=== PATIENT | female | born 1985 | race Two or more races ===

== ENCOUNTER 2023-12-01 23:27 | Inpatient (IN) | payer MEDICAID, OTHER ==
[~2023-12-01] VITALS: Ht 172.7 cm; Wt 88.6 kg
[2023-12-02 00:07] LABS: Basophils # (auto) 0.1 10 ^3/uL (0-0.2); Basophils % (auto) 1.4 % (0.0-2.0); Eosinophils # (auto) 0 10 ^3/uL (0-0.8); Hematocrit 40.3 % (36.0-46.0); Hemoglobin 12.6 g/dL (12.2-16.2); Lymphocytes # (auto) 1.1 10 ^3/uL (0.4-5.4); Lymphocytes % (auto) 16.5 % (10.0-50.0); Mean Corpuscular Hemoglobin 28.5 pg (28.0-32.0); Mean Corpuscular Hgb Conc. 31.3 g/dL (32.0-36.0); Monocytes # (auto) 0.3 10 ^3/uL (0-1.3); Monocytes % (auto) 4.1 % (0.0-12.0); Neutrophils # (auto) 5.2 10 ^3/uL (1.6-8.6); Nucleated Red Blood Cells % 0.1 %; Red Blood Cells 4.42 10^6/uL (4.0-5.20); Red Cell Distribution Width 18.2 % (11.8-14.3); White Blood Cell 6.7 10^3/uL (4.4-10.8)
[2023-12-02 00:21] LABS: Alanine Aminotransferase 31 U/L (7-40); Albumin 3.9 g/dL (3.2-4.8); Alkaline Phosphatase 178 U/L (46-116); Anion Gap 11 (5-15); Aspartate Aminotransferase 65 U/L (13-40); BUN/Creatinine Ratio 14.3 (10.0-20.0); Bilirubin, Total 0.3 mg/dL (0.2-1.0); Blood Urea Nitrogen 8 mg/dL (9-23); Calcium 7.8 mg/dL (8.7-10.4); Carbon Dioxide 24 mmol/L (20-30); Chloride 107 mmol/L (98-107); Glucose 93 mg/dL (74-106); Potassium 3.9 mmol/L (3.5-5.1); Sodium 142 mmol/L (136-145); Total Protein 7.3 g/dL (5.7-8.2)
[2023-12-02 00:22] LABS: Acetaminophen < 2.0 UG/ML (10.0-20.0)
[2023-12-02 00:27] LABS: Salicylate < 3.0 mg/dL (2.8-20.0)
[2023-12-02] MEDS: METOCLOPRAMIDE HCL 5MG/ml INJ 2ml VIAL IV ONE (00:30)
[2023-12-02] MEDS: SODIUM CHLORIDE 0.9% 1,000 ML IV ONE ×2 (01:38→02:25)
[2023-12-02] MEDS: ONDANSETRON HCL 4 MG/2 ML VIAL IV ONE ×2 (01:42→08:04)
[2023-12-02 02:29] VITALS: PULSE 99; RESP 20; O2SAT 97
[2023-12-02 03:04] LABS: Urine Bacteria FEW /hpf (None Seen); Urine Blood 1+ /uL (Negative); Urine Clarity HAZY (Clear); Urine Color Yellow (Yellow); Urine Hyaline Cast FEW /lpf (0 - 2); Urine Mucus FEW (None Seen); Urine Protein, UAD TRACE (Negative); Urine Specific Gravity 1.014 (1.001-1.035); Urine Urobilinogen Normal (Negative); Urine WBC 3 /hpf (0 - 5); Urine pH 6.5 (5.0-8.0)
[2023-12-02 03:05] LABS: Amphetamine Screen, Urine Neg (NEGATIVE); Barbiturate Scree,Urine Neg (NEGATIVE); Benzodiazephine Screen, Urine Neg (NEGATIVE); Cocaine Screen, Urine Neg (NEGATIVE)
[2023-12-02 03:06] LABS: Cannabinoid Screen, Urine Neg (NEGATIVE); Opiate Scree,Urine Neg (NEGATIVE); Phencyclidine Screen, Urine Neg (NEGATIVE)
[2023-12-02] MEDS: ONDANSETRON ODT 4 MG TAB PO ONE (06:29)
[2023-12-02] MEDS: ACETAMINOPHEN 325 MG TAB PO ONE (06:30)
[2023-12-02 07:55] VITALS: PULSE 126; RESP 24; O2SAT 96
[2023-12-02] MEDS: LORazepam 2MG/ML-1ML VIAL IV ONE (08:04)
[2023-12-02] MEDS ORDERED: NITROGLYCERIN 0.4 MG SL TAB SL PRN (10:30)
[2023-12-02] MEDS ORDERED: MORPHINE SULFATE INJ 2 MG/ml SYRG IV PRN (10:30)
[2023-12-02] MEDS: SODIUM CHLORIDE 0.9% 1,000 ML IV SCH (13:08)
[2023-12-02] MEDS: LORazepam 2MG/ML-1ML VIAL IV PRN (13:08)
[2023-12-02] MEDS: ONDANSETRON HCL 4 MG/2 ML VIAL IV PRN (13:44)
[2023-12-02] MEDS: diphenhdrAMINE HCL 50 MG/1 ML VL IV ONE (14:03)
[2023-12-02] MEDS: ACETAMINOPHEN 325 MG TAB PO PRN (16:42)
[2023-12-02] MEDS: FOLIC ACID 1 MG, MAGNESIUM SULF SDV 50% 8 MEQ, MULTIPLE VITAMIN 10 ML, THIAMINE INJ 100... INJ SCH (17:35)
[2023-12-02 19:25] VITALS: PULSE 93; RESP 19; O2SAT 99
[2023-12-03] VITALS (9 sets, daily range): BP systolic 105–137; BP diastolic 77–93; PULSE 65–91; RESP 16–21; TEMP 98.1–98.8; O2SAT 95–98
[2023-12-03] MEDS ORDERED: HYDR-4902 PO (04:08)
[2023-12-03] MEDS ORDERED: LORA-655 PO (04:09)
[2023-12-03 07:06] LABS: Basophils # (auto) 0.1 10 ^3/uL (0-0.2); Eosinophils # (auto) 0 10 ^3/uL (0-0.8); Eosinophils % (auto) 0.5 % (0.0-7.0); Hematocrit 35.6 % (36.0-46.0); Hemoglobin 11.2 g/dL (12.2-16.2); Lymphocytes # (auto) 1.3 10 ^3/uL (0.4-5.4); Lymphocytes % (auto) 21.4 % (10.0-50.0); Mean Corpuscular Hemoglobin 29.1 pg (28.0-32.0); Mean Corpuscular Hgb Conc. 31.5 g/dL (32.0-36.0); Mean Corpuscular Volume 92.3 fL (80.0-100.0); Monocytes # (auto) 0.6 10 ^3/uL (0-1.3); Monocytes % (auto) 9.1 % (0.0-12.0); Neutrophils # (auto) 4.3 10 ^3/uL (1.6-8.6); Nucleated Red Blood Cells % 0.2 %; Red Blood Cells 3.85 10^6/uL (4.0-5.20); Red Cell Distribution Width 18.1 % (11.8-14.3); White Blood Cell 6.3 10^3/uL (4.4-10.8)
[2023-12-03 07:25] LABS: Alanine Aminotransferase 19 U/L (7-40); Albumin 3.4 g/dL (3.2-4.8); Alkaline Phosphatase 137 U/L (46-116); Anion Gap 5 (5-15); Aspartate Aminotransferase 30 U/L (13-40); BUN/Creatinine Ratio 10.7 (10.0-20.0); Bilirubin, Total 0.8 mg/dL (0.2-1.0); Blood Urea Nitrogen 6 mg/dL (9-23); Calcium 7.3 mg/dL (8.5-10.1); Carbon Dioxide 26 mmol/L (20-30); Chloride 109 mmol/L (98-107); Glucose 79 mg/dL (74-106); Potassium 3.6 mmol/L (3.5-5.1); Sodium 140 mmol/L (136-145)
[2023-12-03] MEDS: ENOXAPARIN SOD 40 MG/0.4 ML SYRINGE SC SCH (10:22)
[2023-12-03] MEDS: GABAPENTIN 300 MG CAP PO ONE (15:25)
[2023-12-03] MEDS: GABAPENTIN 300 MG CAP PO SCH (21:51)
[2023-12-04] MEDS: chlordiazePOXIDE HCL 5 MG CAP PO PRN (00:07)
[2023-12-04 06:29] LABS: Basophils # (auto) 0.1 10 ^3/uL (0-0.2); Basophils % (auto) 1.1 % (0.0-2.0); Eosinophils # (auto) 0.1 10 ^3/uL (0-0.8); Eosinophils % (auto) 0.9 % (0.0-7.0); Hematocrit 31.4 % (36.0-46.0); Hemoglobin 10.1 g/dL (12.2-16.2); Lymphocytes # (auto) 1.2 10 ^3/uL (0.4-5.4); Lymphocytes % (auto) 18.7 % (10.0-50.0); Mean Corpuscular Hemoglobin 29.7 pg (28.0-32.0); Mean Corpuscular Hgb Conc. 32.2 g/dL (32.0-36.0); Mean Corpuscular Volume 92.1 fL (80.0-100.0); Monocytes # (auto) 0.6 10 ^3/uL (0-1.3); Monocytes % (auto) 8.6 % (0.0-12.0); Neutrophils # (auto) 4.6 10 ^3/uL (1.6-8.6); Neutrophils % (auto) 70.7 % (37.0-80.0); Red Blood Cells 3.41 10^6/uL (4.0-5.20); Red Cell Distribution Width 17.7 % (11.8-14.3); White Blood Cell 6.4 10^3/uL (4.4-10.8)
[2023-12-04 06:35] LABS: Calcium 7.2 mg/dL (8.7-10.4); Chloride 111 mmol/L (98-107); Potassium 3.4 mmol/L (3.5-5.1); Sodium 142 mmol/L (136-145)
[2023-12-04 06:36] LABS: Anion Gap 6 (5-15); Carbon Dioxide 25 mmol/L (20-30)
[2023-12-04 06:41] LABS: Glucose 86 mg/dL (74-106)
[2023-12-04 06:44] LABS: BUN/Creatinine Ratio 9.8 (10.0-20.0); Blood Urea Nitrogen < 5 mg/dL (9-23)
[2023-12-04 07:45] VITALS: PULSE 94
[2023-12-04 09:00] VITALS: BP 130/83; PULSE 74; RESP 22; TEMP 98.3; O2SAT 100
[2023-12-04] MEDS: POTASSIUM EFFERVESENT TAB 25 MEQ PO ONE (11:42)
[2023-12-04 13:00] VITALS: BP 141/86; PULSE 76; RESP 18; TEMP 97.9; O2SAT 98
[2023-12-04 17:00] VITALS: BP 136/93; PULSE 78; RESP 18; TEMP 98.2; O2SAT 98
[2023-12-04 20:00] VITALS: PULSE 95
[2023-12-05] VITALS (7 sets, daily range): BP systolic 111–126; BP diastolic 77–85; PULSE 66–114; RESP 17–20; TEMP 97.7–98.6; O2SAT 96–98
[2023-12-05 07:14] LABS: Calcium 7.9 mg/dL (8.5-10.1); Chloride 110 mmol/L (98-107); Potassium 3.8 mmol/L (3.5-5.1); Sodium 141 mmol/L (136-145)
[2023-12-05 07:15] LABS: Anion Gap 5 (5-15); Carbon Dioxide 26 mmol/L (20-30)
[2023-12-05 07:20] LABS: Basophils # (auto) 0.1 10 ^3/uL (0-0.2); Eosinophils # (auto) 0.1 10 ^3/uL (0-0.8); Eosinophils % (auto) 1.1 % (0.0-7.0); Glucose 87 mg/dL (74-106); Hematocrit 31.8 % (36.0-46.0); Lymphocytes # (auto) 1.5 10 ^3/uL (0.4-5.4); Lymphocytes % (auto) 22.5 % (10.0-50.0); Mean Corpuscular Hemoglobin 29.1 pg (28.0-32.0); Mean Corpuscular Hgb Conc. 31.6 g/dL (32.0-36.0); Mean Corpuscular Volume 92.2 fL (80.0-100.0); Monocytes # (auto) 0.7 10 ^3/uL (0-1.3); Monocytes % (auto) 10.2 % (0.0-12.0); Neutrophils # (auto) 4.4 10 ^3/uL (1.6-8.6); Neutrophils % (auto) 65.2 % (37.0-80.0); Nucleated Red Blood Cells % 0.1 %; Red Blood Cells 3.45 10^6/uL (4.0-5.20); Red Cell Distribution Width 18.3 % (11.8-14.3); White Blood Cell 6.8 10^3/uL (4.4-10.8)
[2023-12-05 07:21] LABS: BUN/Creatinine Ratio 10.4 (10.0-20.0); Blood Urea Nitrogen < 5 mg/dL (9-23)
[2023-12-05] MEDS: QUEtiapine FUMARATE 25 MG TAB PO SCH (10:06)
[2023-12-06 05:00] VITALS: BP 111/79; PULSE 100; RESP 20; TEMP 97.9; O2SAT 98
[2023-12-06 08:15] VITALS: PULSE 65
[2023-12-06 09:00] VITALS: BP 112/76; PULSE 70; RESP 18; TEMP 98; O2SAT 97
[2023-12-06 09:22] VITALS: BP 112/76; PULSE 70; RESP 18; O2SAT 97
[2023-12-06] MEDS: LORazepam 0.5 MG TAB PO ONE (09:51)
== END 2023-12-06 10:55 | DRG 817 ==
LOC: EDBD 23:27 → ER 23:27 → TELE 12-02 10:30 → TELE-EAST 12-02 23:08
PROVIDERS: ADMIT Internal Medicine; ATTEND Internal Medicine
DX: T51.92XA Toxic effect of unspecified alcohol, intentional self-harm, initial encounter (principal); F10.139 Alcohol abuse with withdrawal, unspecified; R44.1 Visual hallucinations; F17.210 Nicotine dependence, cigarettes, uncomplicated; F32.A Depression, unspecified; T14.91XA Suicide attempt, initial encounter; F41.9 Anxiety disorder, unspecified; Y90.8 Blood alcohol level of 240 mg/100 ml or more; F14.10 Cocaine abuse, uncomplicated; Z63.4 Disappearance and death of family member; Z91.51 Personal history of suicidal behavior; Z91.52 Personal history of nonsuicidal self-harm; Z71.51 Drug abuse counseling and surveillance of drug abuser
CPT/HCPCS: 36415; 80048; 80053; 80307; 80320; 80329; 81001; 83735; 84702; 85025; 93005; 96361; 96374; 96375; 96376; G0378; J2405; Q0162

== ENCOUNTER 2024-01-11 23:28 | Inpatient (IN) | payer MEDICAID ==
[~2024-01-11] VITALS: Ht 172.7 cm; Wt 87.3 kg
[~2024-01-11 23:28] MED LIST: HYDR-4902 PO; LORA-655 PO
[2024-01-11] MEDS: ROCURONIUM 10MG/ML 10ML VIAL IV ONE ×2 (23:38→23:46)
[2024-01-11] MEDS: ETOMIDATE (2MG/ML) 20ML VIAL IV ONE ×2 (23:38→23:46)
[2024-01-11 23:50] VITALS: BP 131/97; PULSE 112; RESP 17; O2SAT 95
[2024-01-11 23:59] LABS: Urine Bacteria MOD /hpf (None Seen); Urine Blood Negative /uL (Negative); Urine Clarity HAZY (Clear); Urine Color Yellow (Yellow); Urine Mucus FEW (None Seen); Urine Protein, UAD Negative (Negative); Urine Specific Gravity 1.009 (1.001-1.035); Urine Urobilinogen Normal (Negative); Urine WBC 46 /hpf (0 - 5)
[2024-01-12] VITALS (8 sets, daily range): BP systolic 101–136; BP diastolic 40–97; PULSE 74–104; RESP 16–26; TEMP 98–98.3; O2SAT 94–98
[2024-01-12 00:09] LABS: Amphetamine Screen, Urine Neg (NEGATIVE); Barbiturate Scree,Urine Neg (NEGATIVE); Benzodiazephine Screen, Urine Neg (NEGATIVE); Cocaine Screen, Urine Neg (NEGATIVE); Opiate Scree,Urine Neg (NEGATIVE)
[2024-01-12 00:10] LABS: Cannabinoid Screen, Urine Pos (NEGATIVE); Phencyclidine Screen, Urine Neg (NEGATIVE)
[2024-01-12 00:19] LABS: Basophils # (auto) 0 10 ^3/uL (0-0.2); Basophils % (auto) 0.5 % (0.0-2.0); Eosinophils # (auto) 0 10 ^3/uL (0-0.8); Eosinophils % (auto) 0.9 % (0.0-7.0); Hematocrit 38.6 % (36.0-46.0); Hemoglobin 12.2 g/dL (12.2-16.2); Lymphocytes # (auto) 2.2 10 ^3/uL (0.4-5.4); Lymphocytes % (auto) 41.7 % (10.0-50.0); Mean Corpuscular Hemoglobin 28.4 pg (28.0-32.0); Mean Corpuscular Hgb Conc. 31.5 g/dL (32.0-36.0); Mean Corpuscular Volume 90.5 fL (80.0-100.0); Monocytes # (auto) 0.5 10 ^3/uL (0-1.3); Monocytes % (auto) 8.6 % (0.0-12.0); Neutrophils # (auto) 2.6 10 ^3/uL (1.6-8.6); Neutrophils % (auto) 48.3 % (37.0-80.0); Nucleated Red Blood Cells % 0.1 %; Red Blood Cells 4.27 10^6/uL (4.0-5.20); Red Cell Distribution Width 19.9 % (11.8-14.3); White Blood Cell 5.4 10^3/uL (4.4-10.8)
[2024-01-12 00:27] LABS: Chloride 107 mmol/L (98-107); Potassium 3.2 mmol/L (3.5-5.1); Sodium 143 mmol/L (136-145)
[2024-01-12 00:28] LABS: Anion Gap 11 (5-15); Calcium 7.5 mg/dL (8.7-10.4); Carbon Dioxide 25 mmol/L (20-30)
[2024-01-12 00:33] LABS: BUN/Creatinine Ratio 14.5 (10.0-20.0); Blood Urea Nitrogen 8 mg/dL (9-23); Glucose 106 mg/dL (74-106)
[2024-01-12] MEDS: cefTRIAXone 1GM/50ML D5W 50 ML IV ONE (01:01)
[2024-01-12] MEDS: PROPOFOL 100 ML IV SCH (01:25)
[2024-01-12 02:08] LABS: Blood Alcohol 433.3 mg/dL (<10)
[2024-01-12 02:43] LABS: Base Excess -1.6 mmol/L (-2.0-2.0)
[2024-01-12] MEDS: CALCIUM GLUC 1,000mg/50ml-NS 50 ML IV ONE (03:36)
[2024-01-12] MEDS ORDERED: MORPHINE SULFATE INJ 2 MG/ml SYRG IV PRN (03:45)
[2024-01-12] MEDS ORDERED: NITROGLYCERIN 0.4 MG SL TAB SL PRN (03:45)
[2024-01-12 04:09] LABS: Basophils # (auto) 0.1 10 ^3/uL (0-0.2); Basophils % (auto) 1.1 % (0.0-2.0); Eosinophils # (auto) 0 10 ^3/uL (0-0.8); Eosinophils % (auto) 0.5 % (0.0-7.0); Hematocrit 38.9 % (36.0-46.0); Hemoglobin 12.2 g/dL (12.2-16.2); Lymphocytes % (auto) 20.4 % (10.0-50.0); Mean Corpuscular Hemoglobin 28.5 pg (28.0-32.0); Mean Corpuscular Hgb Conc. 31.4 g/dL (32.0-36.0); Mean Corpuscular Volume 90.5 fL (80.0-100.0); Monocytes # (auto) 0.3 10 ^3/uL (0-1.3); Monocytes % (auto) 5.9 % (0.0-12.0); Neutrophils # (auto) 3.6 10 ^3/uL (1.6-8.6); Neutrophils % (auto) 72.1 % (37.0-80.0); Nucleated Red Blood Cells % 0.1 %; Red Cell Distribution Width 19.5 % (11.8-14.3)
[2024-01-12 04:18] LABS: Alanine Aminotransferase 21 U/L (7-40); Albumin 3.3 g/dL (3.2-4.8); Alkaline Phosphatase 91 U/L (46-116); Anion Gap 14 (5-15); Aspartate Aminotransferase 73 U/L (13-40); BUN/Creatinine Ratio 14.8 (10.0-20.0); Blood Urea Nitrogen 8 mg/dL (9-23); Calcium 7.7 mg/dL (8.7-10.4); Carbon Dioxide 23 mmol/L (20-30); Chloride 107 mmol/L (98-107); Glucose 97 mg/dL (74-106); Potassium 3.1 mmol/L (3.5-5.1); Sodium 144 mmol/L (136-145)
[2024-01-12 04:19] LABS: Bilirubin, Total 0.3 mg/dL (0.2-1.0); Total Protein 6.2 g/dL (5.7-8.2)
[2024-01-12 05:00] LABS: Base Excess -6.9 mmol/L (-2.0-2.0)
[2024-01-12] MEDS: SODIUM CHLOR 0.9% PF (SALINE LOCK) 10ML VIAL/SYR IV SCH (05:21)
[2024-01-12] MEDS: MULTIPLE VITAMIN TAB PO SCH (10:48)
[2024-01-12] MEDS: THIAMINE 100mg/ml INJ (200mg/2ml VIAL) IV SCH (10:48)
[2024-01-12] MEDS: FOLIC ACID 1 MG in D5W 5% 50 ML INJ SCH (12:11)
[2024-01-12] MEDS: ONDANSETRON ODT 4 MG TAB PO PRN (13:33)
[2024-01-12] MEDS: HYDROcodone-ACET 5/325MG TAB PO PRN (13:37)
[2024-01-12] MEDS: LORazepam 2MG/ML-1ML VIAL IV PRN (18:47)
[2024-01-12] MEDS: ONDANSETRON HCL 4 MG/2 ML VIAL IV PRN (18:47)
[2024-01-12] MEDS: FOLIC ACID 1 MG, MAGNESIUM SULF SDV 50% 8 MEQ, MULTIPLE VITAMIN 10 ML, THIAMINE INJ 100... INJ SCH (20:02)
[2024-01-12] MEDS: traZODone HCL 50 MG TAB PO SCH (20:51)
[2024-01-12] MEDS: busPIRone HCL 10 MG TAB PO SCH (20:51)
[2024-01-13] VITALS (9 sets, daily range): BP systolic 95–130; BP diastolic 56–88; PULSE 61–89; RESP 18–22; TEMP 97.9–98.2; O2SAT 95–97
[2024-01-13] MEDS: cefTRIAXone 1GM/50ML D5W 50 ML IV SCH (02:25)
[2024-01-13] MEDS: POTASSIUM EFFERVESENT TAB 25 MEQ PO ONE (09:22)
[2024-01-13] MEDS: FLUoxetine HCL 20 MG CAP PO SCH (09:22)
[2024-01-14] VITALS (11 sets, daily range): BP systolic 92–118; BP diastolic 50–80; PULSE 61–91; RESP 16–22; TEMP 97.8–98.3; O2SAT 95–99
[2024-01-14 06:06] LABS: Basophils # (auto) 0.1 10 ^3/uL (0-0.2); Basophils % (auto) 1.1 % (0.0-2.0); Eosinophils # (auto) 0.1 10 ^3/uL (0-0.8); Eosinophils % (auto) 2.1 % (0.0-7.0); Hematocrit 32.8 % (36.0-46.0); Hemoglobin 10.3 g/dL (12.2-16.2); Lymphocytes # (auto) 1.6 10 ^3/uL (0.4-5.4); Lymphocytes % (auto) 35.4 % (10.0-50.0); Mean Corpuscular Hemoglobin 27.9 pg (28.0-32.0); Mean Corpuscular Hgb Conc. 31.3 g/dL (32.0-36.0); Mean Corpuscular Volume 89.2 fL (80.0-100.0); Monocytes # (auto) 0.5 10 ^3/uL (0-1.3); Monocytes % (auto) 10.1 % (0.0-12.0); Neutrophils # (auto) 2.4 10 ^3/uL (1.6-8.6); Neutrophils % (auto) 51.3 % (37.0-80.0); Nucleated Red Blood Cells % 0.2 %; Red Blood Cells 3.68 10^6/uL (4.0-5.20); Red Cell Distribution Width 19.1 % (11.8-14.3); White Blood Cell 4.6 10^3/uL (4.4-10.8)
[2024-01-14 06:18] LABS: Chloride 110 mmol/L (98-107); Potassium 4.3 mmol/L (3.5-5.1); Sodium 141 mmol/L (136-145)
[2024-01-14 06:19] LABS: Anion Gap 1 (5-15); Calcium 7.7 mg/dL (8.7-10.4); Carbon Dioxide 30 mmol/L (20-30)
[2024-01-14 06:24] LABS: BUN/Creatinine Ratio 19.2 (10.0-20.0); Blood Urea Nitrogen 10 mg/dL (9-23); Glucose 85 mg/dL (74-106)
[2024-01-14] MEDS ORDERED: DOCUSATE SOD 100 MG CAP PO PRN (17:00)
[2024-01-15] VITALS (7 sets, daily range): BP systolic 106–116; BP diastolic 67–80; PULSE 59–87; RESP 16–20; TEMP 97–98.6; O2SAT 92–98
[2024-01-15] MEDS: ACETAMINOPHEN 325 MG TAB PO PRN (01:42)
[2024-01-15 06:21] LABS: Chloride 107 mmol/L (98-107); Potassium 4.3 mmol/L (3.5-5.1); Sodium 140 mmol/L (136-145)
[2024-01-15 06:22] LABS: Anion Gap 4 (5-15); Carbon Dioxide 29 mmol/L (20-30)
[2024-01-15 06:23] LABS: Calcium 7.7 mg/dL (8.5-10.1)
[2024-01-15 06:26] LABS: Basophils # (auto) 0.1 10 ^3/uL (0-0.2); Eosinophils # (auto) 0.1 10 ^3/uL (0-0.8); Hemoglobin 10.5 g/dL (12.2-16.2); Lymphocytes # (auto) 1.1 10 ^3/uL (0.4-5.4); Monocytes # (auto) 0.4 10 ^3/uL (0-1.3); Red Cell Distribution Width 19.3 % (11.8-14.3); White Blood Cell 5.7 10^3/uL (4.4-10.8)
[2024-01-15 06:27] LABS: Basophils % (auto) 0.9 % (0.0-2.0); Blood Urea Nitrogen 9 mg/dL (9-23); Eosinophils % (auto) 1.4 % (0.0-7.0); Glucose 91 mg/dL (74-106); Lymphocytes % (auto) 19.6 % (10.0-50.0); Mean Corpuscular Hemoglobin 27.8 pg (28.0-32.0); Mean Corpuscular Hgb Conc. 30.9 g/dL (32.0-36.0); Monocytes % (auto) 7.6 % (0.0-12.0); Neutrophils % (auto) 70.5 % (37.0-80.0); Nucleated Red Blood Cells % 0.1 %; Red Blood Cells 3.78 10^6/uL (4.0-5.20)
[2024-01-15] MEDS: busPIRone HCL 10 MG TAB PO SCH (21:00)
[2024-01-16] VITALS (8 sets, daily range): BP systolic 94–116; BP diastolic 57–76; PULSE 51–78; RESP 14–18; TEMP 97.8–98.7; O2SAT 95–98
[2024-01-16 06:29] LABS: Basophils # (auto) 0.1 10 ^3/uL (0-0.2); Eosinophils # (auto) 0.1 10 ^3/uL (0-0.8); Eosinophils % (auto) 2.1 % (0.0-7.0); Hematocrit 31.9 % (36.0-46.0); Hemoglobin 10.1 g/dL (12.2-16.2); Lymphocytes # (auto) 1.6 10 ^3/uL (0.4-5.4); Lymphocytes % (auto) 26.2 % (10.0-50.0); Mean Corpuscular Hemoglobin 28.5 pg (28.0-32.0); Mean Corpuscular Hgb Conc. 31.5 g/dL (32.0-36.0); Mean Corpuscular Volume 90.6 fL (80.0-100.0); Monocytes # (auto) 0.4 10 ^3/uL (0-1.3); Monocytes % (auto) 7.2 % (0.0-12.0); Neutrophils # (auto) 3.9 10 ^3/uL (1.6-8.6); Neutrophils % (auto) 63.5 % (37.0-80.0); Nucleated Red Blood Cells % 0.1 %; Red Blood Cells 3.53 10^6/uL (4.0-5.20); Red Cell Distribution Width 19.2 % (11.8-14.3); White Blood Cell 6.1 10^3/uL (4.4-10.8)
[2024-01-16 06:41] LABS: Chloride 109 mmol/L (98-107); Potassium 4.1 mmol/L (3.5-5.1); Sodium 140 mmol/L (136-145)
[2024-01-16 06:42] LABS: Anion Gap 4 (5-15); Calcium 7.6 mg/dL (8.5-10.1); Carbon Dioxide 27 mmol/L (20-30)
[2024-01-16 06:47] LABS: BUN/Creatinine Ratio 13.2 (10.0-20.0); Blood Urea Nitrogen 7 mg/dL (9-23); Glucose 87 mg/dL (74-106)
[2024-01-17] VITALS (7 sets, daily range): BP systolic 95–126; BP diastolic 52–68; PULSE 50–70; RESP 15–20; TEMP 98–99.4; O2SAT 96–99
[2024-01-17 06:01] LABS: Basophils # (auto) 0.1 10 ^3/uL (0-0.2); Basophils % (auto) 0.8 % (0.0-2.0); Eosinophils # (auto) 0.1 10 ^3/uL (0-0.8); Eosinophils % (auto) 1.5 % (0.0-7.0); Hematocrit 34.2 % (36.0-46.0); Hemoglobin 10.8 g/dL (12.2-16.2); Lymphocytes # (auto) 1.4 10 ^3/uL (0.4-5.4); Mean Corpuscular Hemoglobin 28.4 pg (28.0-32.0); Mean Corpuscular Hgb Conc. 31.5 g/dL (32.0-36.0); Mean Corpuscular Volume 90.2 fL (80.0-100.0); Monocytes # (auto) 0.5 10 ^3/uL (0-1.3); Neutrophils # (auto) 5.5 10 ^3/uL (1.6-8.6); Neutrophils % (auto) 72.7 % (37.0-80.0); Red Cell Distribution Width 19.6 % (11.8-14.3); White Blood Cell 7.5 10^3/uL (4.4-10.8)
[2024-01-17 06:10] LABS: Anion Gap 4 (5-15); Carbon Dioxide 28 mmol/L (20-30); Chloride 108 mmol/L (98-107); Potassium 4.1 mmol/L (3.5-5.1); Sodium 140 mmol/L (136-145)
[2024-01-17 06:16] LABS: BUN/Creatinine Ratio 13.6 (10.0-20.0); Blood Urea Nitrogen 8 mg/dL (9-23); Glucose 96 mg/dL (74-106)
[2024-01-18 05:00] VITALS: BP 104/72; PULSE 60; RESP 20; TEMP 97.7; O2SAT 95
[2024-01-18 09:00] VITALS: BP 103/57; PULSE 56; RESP 20; TEMP 97.7; O2SAT 100
[2024-01-18 13:00] VITALS: BP 127/64; PULSE 64; RESP 20; TEMP 98.1; O2SAT 100
== END 2024-01-18 14:30 | disposition left against medical advice (07) | DRG 817 ==
LOC: EDSEX 23:28 → EDBD 23:28 → ER 23:28 → TELE 01-12 03:47 → TELE-WESTW 01-12 08:57 → WEST WING 01-17 13:52
PROVIDERS: ADMIT Internal Medicine Pulmonary Disease; ATTEND Internal Medicine Pulmonary Disease
PROC: 0BH17EZ Insertion of Endotracheal Airway into Trachea, Via Natural or Artificial Opening (ICD-10-PCS; principal; 2024-01-12)
PROC: 5A1935Z Respiratory Ventilation, Less than 24 Consecutive Hours (ICD-10-PCS; 2024-01-12)
PROC: 0BP1XDZ Removal of Intraluminal Device from Trachea, External Approach (ICD-10-PCS; 2024-01-12)
DX: T51.0X2A Toxic effect of ethanol, intentional self-harm, initial encounter (principal); J96.01 Acute respiratory failure with hypoxia; G92.8 Other toxic encephalopathy; R45.851 Suicidal ideations; F33.2 Major depressive disorder, recurrent severe without psychotic features; E87.8 Other disorders of electrolyte and fluid balance, not elsewhere classified; E87.6 Hypokalemia; F10.129 Alcohol abuse with intoxication, unspecified; N39.0 Urinary tract infection, site not specified; Y90.8 Blood alcohol level of 240 mg/100 ml or more; Z53.29 Procedure and treatment not carried out because of patient's decision for other reasons; R44.0 Auditory hallucinations; Z79.899 Other long term (current) drug therapy; Z83.3 Family history of diabetes mellitus; Z82.49 Family history of ischemic heart disease and other diseases of the circulatory system; Z80.7 Family history of other malignant neoplasms of lymphoid, hematopoietic and related tissues; Y92.89 Other specified places as the place of occurrence of the external cause
CPT/HCPCS: 31500; 36415; 36600; 71045; 80048; 80053; 80307; 80320; 80329; 81001; 82805; 84484; 84702; 85025; 87070; 87086; 87205; 93005; 96365; 99291; G0378; J2405; J2704; J7060; Q0162

== ENCOUNTER 2024-01-31 16:14 | Inpatient (IN) | payer MEDICAID ==
[~2024-01-31] VITALS: Ht 172.7 cm; Wt 85.4 kg
[2024-01-31 16:50] VITALS: PULSE 63; RESP 14; O2SAT 96
[2024-01-31] MEDS: SODIUM CHLORIDE 0.9% 1,000 ML IV ONE (18:57)
[2024-01-31 19:25] LABS: Basophils # (auto) 0 10 ^3/uL (0-0.2); Basophils % (auto) 0.8 % (0.0-2.0); Eosinophils # (auto) 0.1 10 ^3/uL (0-0.8); Eosinophils % (auto) 1.7 % (0.0-7.0); Hematocrit 38.4 % (36.0-46.0); Lymphocytes # (auto) 1.5 10 ^3/uL (0.4-5.4); Lymphocytes % (auto) 30.5 % (10.0-50.0); Mean Corpuscular Hemoglobin 27.7 pg (28.0-32.0); Mean Corpuscular Hgb Conc. 31.3 g/dL (32.0-36.0); Mean Corpuscular Volume 88.4 fL (80.0-100.0); Monocytes # (auto) 0.4 10 ^3/uL (0-1.3); Monocytes % (auto) 8.7 % (0.0-12.0); Neutrophils % (auto) 58.3 % (37.0-80.0); Nucleated Red Blood Cells % 0.2 %; Red Blood Cells 4.34 10^6/uL (4.0-5.20); Red Cell Distribution Width 19.9 % (11.8-14.3); White Blood Cell 5.1 10^3/uL (4.4-10.8)
[2024-01-31 19:30] VITALS: PULSE 89; RESP 18; O2SAT 96
[2024-01-31 19:34] LABS: Chloride 107 mmol/L (98-107); Potassium 3.6 mmol/L (3.5-5.1); Sodium 144 mmol/L (136-145)
[2024-01-31 19:35] LABS: Anion Gap 10 (5-15); Calcium 7.7 mg/dL (8.5-10.1); Carbon Dioxide 27 mmol/L (20-30)
[2024-01-31 19:40] LABS: BUN/Creatinine Ratio 13.6 (10.0-20.0); Blood Urea Nitrogen 8 mg/dL (9-23); Glucose 103 mg/dL (74-106)
[2024-01-31 19:41] LABS: Blood Alcohol 286.1 mg/dL (<10)
[2024-01-31] MEDS: LORazepam 2MG/ML-1ML VIAL IV ONE (21:14)
[2024-01-31 22:46] LABS: Amphetamine Screen, Urine Neg (NEGATIVE); Barbiturate Scree,Urine Neg (NEGATIVE); Benzodiazephine Screen, Urine Neg (NEGATIVE); Cocaine Screen, Urine Neg (NEGATIVE); Opiate Scree,Urine Neg (NEGATIVE)
[2024-01-31 22:47] LABS: Cannabinoid Screen, Urine Pos (NEGATIVE); Phencyclidine Screen, Urine Neg (NEGATIVE)
[2024-02-01] MEDS: ONDANSETRON HCL 4 MG/2 ML VIAL IV ONE ×2 (00:47→08:56)
[2024-02-01] MEDS: LORazepam 2MG/ML-1ML VIAL IV ONE ×3 (01:40→08:56)
[2024-02-01 07:30] VITALS: PULSE 74; RESP 16; O2SAT 99
[2024-02-01] MEDS: LORazepam 2MG/ML-1ML VIAL IV SCH (08:45)
[2024-02-01 08:57] LABS: Basophils # (auto) 0.1 10 ^3/uL (0-0.2); Basophils % (auto) 1.2 % (0.0-2.0); Eosinophils # (auto) 0.1 10 ^3/uL (0-0.8); Eosinophils % (auto) 1.4 % (0.0-7.0); Hematocrit 32.5 % (36.0-46.0); Hemoglobin 10.5 g/dL (12.2-16.2); Lymphocytes # (auto) 0.9 10 ^3/uL (0.4-5.4); Lymphocytes % (auto) 20.7 % (10.0-50.0); Mean Corpuscular Hemoglobin 28.2 pg (28.0-32.0); Mean Corpuscular Hgb Conc. 32.3 g/dL (32.0-36.0); Mean Corpuscular Volume 87.4 fL (80.0-100.0); Monocytes # (auto) 0.4 10 ^3/uL (0-1.3); Monocytes % (auto) 8.5 % (0.0-12.0); Neutrophils # (auto) 2.9 10 ^3/uL (1.6-8.6); Neutrophils % (auto) 68.2 % (37.0-80.0); Nucleated Red Blood Cells % 0.3 %; Red Blood Cells 3.72 10^6/uL (4.0-5.20); Red Cell Distribution Width 19.8 % (11.8-14.3); White Blood Cell 4.3 10^3/uL (4.4-10.8)
[2024-02-01] MEDS: SODIUM CHLORIDE 0.9% 1,000 ML IVB ONE (08:57)
[2024-02-01] MEDS: THIAMINE 100mg/ml INJ (200mg/2ml VIAL) IV ONE (08:59)
[2024-02-01 09:14] LABS: Alanine Aminotransferase 36 U/L (7-40); Albumin 3.3 g/dL (3.2-4.8); Alkaline Phosphatase 129 U/L (46-116); Anion Gap 8 (5-15); Aspartate Aminotransferase 60 U/L (13-40); BUN/Creatinine Ratio 18.9 (10.0-20.0); Blood Urea Nitrogen 10 mg/dL (9-23); Calcium 7.4 mg/dL (8.5-10.1); Carbon Dioxide 27 mmol/L (20-30); Chloride 103 mmol/L (98-107); Glucose 91 mg/dL (74-106); Potassium 3.6 mmol/L (3.5-5.1); Sodium 138 mmol/L (136-145)
[2024-02-01 09:15] LABS: Total Protein 5.6 g/dL (5.7-8.2)
[2024-02-01] MEDS ORDERED: DOCUSATE SOD 100 MG CAP PO PRN (09:30)
[2024-02-01 10:19] LABS: Magnesium 1.3 mg/dL (1.6-2.6)
[2024-02-01] MEDS: SODIUM CHLORIDE 0.9% 1,000 ML IV SCH (11:34)
[2024-02-01] MEDS: chlordiazePOXIDE HCL 25 MG CAP PO SCH (11:34)
[2024-02-01] MEDS: FOLIC ACID 1 MG, MAGNESIUM SULF SDV 50% 8 MEQ, MULTIPLE VITAMIN 10 ML, THIAMINE INJ 100... INJ SCH (19:20)
[2024-02-01 20:00] VITALS: PULSE 80; RESP 18; O2SAT 99
[2024-02-01] MEDS: ONDANSETRON HCL 4 MG/2 ML VIAL IV PRN (21:36)
[2024-02-01] MEDS: MORPHINE SULFATE INJ 2 MG/ml SYRG IV PRN (21:37)
[2024-02-01 23:02] VITALS: BP 146/99; PULSE 75; RESP 18; O2SAT 97
[2024-02-02 00:23] VITALS: BP 146/99; PULSE 75; RESP 18; TEMP 98.6; O2SAT 97
[2024-02-02 05:00] VITALS: BP 146/99; PULSE 75; RESP 18; TEMP 98.8; O2SAT 97
[2024-02-02 05:45] LABS: Basophils # (auto) 0 10 ^3/uL (0-0.2); Basophils % (auto) 1.1 % (0.0-2.0); Eosinophils # (auto) 0.1 10 ^3/uL (0-0.8); Eosinophils % (auto) 3.3 % (0.0-7.0); Hematocrit 32.8 % (36.0-46.0); Hemoglobin 10.5 g/dL (12.2-16.2); Lymphocytes # (auto) 1.5 10 ^3/uL (0.4-5.4); Lymphocytes % (auto) 38.1 % (10.0-50.0); Mean Corpuscular Hemoglobin 28.2 pg (28.0-32.0); Mean Corpuscular Hgb Conc. 32.1 g/dL (32.0-36.0); Mean Corpuscular Volume 88.1 fL (80.0-100.0); Monocytes # (auto) 0.4 10 ^3/uL (0-1.3); Monocytes % (auto) 9.1 % (0.0-12.0); Neutrophils # (auto) 1.9 10 ^3/uL (1.6-8.6); Neutrophils % (auto) 48.4 % (37.0-80.0); Nucleated Red Blood Cells % 0.6 %; Red Blood Cells 3.72 10^6/uL (4.0-5.20); Red Cell Distribution Width 19.4 % (11.8-14.3); White Blood Cell 3.9 10^3/uL (4.4-10.8)
[2024-02-02 06:04] LABS: Alanine Aminotransferase 28 U/L (7-40); Albumin 3.2 g/dL (3.2-4.8); Alkaline Phosphatase 130 U/L (46-116); Anion Gap 7 (5-15); Aspartate Aminotransferase 37 U/L (13-40); Calcium 7.7 mg/dL (8.5-10.1); Carbon Dioxide 27 mmol/L (20-30); Chloride 106 mmol/L (98-107); Glucose 81 mg/dL (74-106); Potassium 3.3 mmol/L (3.5-5.1); Sodium 140 mmol/L (136-145)
[2024-02-02 06:05] LABS: Bilirubin, Total 0.9 mg/dL (0.2-1.0); Total Protein 5.5 g/dL (5.7-8.2)
[2024-02-02] MEDS: chlordiazePOXIDE HCL 25 MG CAP PO SCH (06:08)
[2024-02-02 06:09] LABS: BUN/Creatinine Ratio 10.4 (10.0-20.0); Blood Urea Nitrogen < 5 mg/dL (9-23)
[2024-02-02 09:07] VITALS: BP 135/82; PULSE 73; RESP 17; TEMP 98.5; O2SAT 98
[2024-02-02] MEDS ORDERED: chlordiazePOXIDE HCL 25 MG CAP PO SCH (10:00)
[2024-02-02] MEDS: POTASSIUM EFFERVESENT TAB 25 MEQ PO ONE (12:41)
[2024-02-02 13:00] VITALS: BP 118/54; PULSE 73; RESP 18; TEMP 98.5; O2SAT 98
[2024-02-02 17:10] VITALS: BP 120/85; PULSE 75; RESP 20; TEMP 98.7; O2SAT 99
[2024-02-02 22:00] VITALS: BP 134/93; PULSE 102; RESP 20; O2SAT 98
[2024-02-03 01:00] VITALS: BP 122/58; PULSE 74; RESP 20; TEMP 98.9; O2SAT 97
[2024-02-03 05:00] VITALS: BP 120/58; PULSE 59; PULSE 81; RESP 17; RESP 18; TEMP 97.7; TEMP 98.7; O2SAT 96; O2SAT 97
[2024-02-03 09:00] VITALS: BP 123/91; PULSE 64; RESP 21; TEMP 97.7; O2SAT 96
[2024-02-03] MEDS: LORazepam 2MG/ML-1ML VIAL IV PRN (09:47)
[2024-02-03 10:00] VITALS: BP 113/75; PULSE 87; RESP 21; TEMP 98.7; O2SAT 97
[2024-02-03] MEDS: chlordiazePOXIDE HCL 25 MG CAP PO SCH (10:18)
[2024-02-03] MEDS: levETIRAcetam 500 MG TAB PO ONE (11:15)
[2024-02-03] MEDS: levETIRAcetam 500 MG TAB ONE (11:22)
[2024-02-03 13:00] VITALS: BP 110/70; PULSE 74; RESP 20; TEMP 97.8; O2SAT 95
[2024-02-03 20:30] VITALS: RESP 17; O2SAT 96
[2024-02-03] MEDS: levETIRAcetam 500 MG TAB PO SCH (22:42)
[2024-02-04] VITALS (26 sets, daily range): BP systolic 94–182; BP diastolic 54–106; PULSE 46–91; RESP 13–25; TEMP 97.3–98.3; O2SAT 71–100
[2024-02-04] MEDS: MELATONIN 5 MG TAB PO ONE (01:56)
[2024-02-04] MEDS: levETIRAcetam 1000 mg/100ml 100 ML IV SCH (10:00)
[2024-02-04] MEDS: DEXTROSE (50%) 50ML SYRG IV ONE (18:30)
[2024-02-04] MEDS: DEXTROSE 50% SYRINGE 50 ML IV ONE (18:37)
[2024-02-04 18:42] LABS: Basophils # (auto) 0 10 ^3/uL (0-0.2); Basophils % (auto) 0.7 % (0.0-2.0); Eosinophils # (auto) 0.1 10 ^3/uL (0-0.8); Eosinophils % (auto) 2.4 % (0.0-7.0); Hematocrit 31.3 % (36.0-46.0); Hemoglobin 9.9 g/dL (12.2-16.2); Lymphocytes # (auto) 1.1 10 ^3/uL (0.4-5.4); Lymphocytes % (auto) 18.5 % (10.0-50.0); Mean Corpuscular Hemoglobin 28.4 pg (28.0-32.0); Mean Corpuscular Hgb Conc. 31.5 g/dL (32.0-36.0); Monocytes # (auto) 0.5 10 ^3/uL (0-1.3); Monocytes % (auto) 8.7 % (0.0-12.0); Neutrophils # (auto) 4.2 10 ^3/uL (1.6-8.6); Neutrophils % (auto) 69.7 % (37.0-80.0); Nucleated Red Blood Cells % 0.1 %; Red Blood Cells 3.48 10^6/uL (4.0-5.20); Red Cell Distribution Width 20.8 % (11.8-14.3)
[2024-02-04] MEDS: ETOMIDATE (2MG/ML) 20ML VIAL IV ONE ×2 (19:05→20:00)
[2024-02-04] MEDS: SUCCINYLCHOLINE CHLORIDE 20 MG/ML 10ML VIAL IV ONE ×2 (19:06→21:23)
[2024-02-04] MEDS: fentaNYL Drip 2500mCg/250mlNS 250 ML IV ONE (19:24)
[2024-02-04] MEDS: MIDAZOLAM DRIP 50 mg/50mL 100 ML IV ONE (19:27)
[2024-02-04] MEDS: PROPOFOL 100 ML IV ONE (19:30)
[2024-02-04 19:31] LABS: Alanine Aminotransferase 20 U/L (7-40); Albumin 3.1 g/dL (3.2-4.8); Alkaline Phosphatase 104 U/L (46-116); Anion Gap 9 (5-15); Aspartate Aminotransferase 26 U/L (13-40); BUN/Creatinine Ratio 18.5 (10.0-20.0); Bilirubin, Total 0.2 mg/dL (0.2-1.0); Blood Urea Nitrogen 10 mg/dL (9-23); Calcium 7.9 mg/dL (8.5-10.1); Carbon Dioxide 21 mmol/L (20-30); Chloride 112 mmol/L (98-107); Glucose 81 mg/dL (74-106); Potassium 3.6 mmol/L (3.5-5.1); Sodium 142 mmol/L (136-145); Total Protein 5.1 g/dL (5.7-8.2)
[2024-02-04] MEDS: NOREPINEPHRINE 8 MG/250ML KIT 250 ML IV ONE (20:01)
[2024-02-04 20:57] LABS: Urine Bacteria None Seen /hpf (None Seen)
[2024-02-04 21:05] LABS: Urine Blood Negative /uL (Negative); Urine Clarity Clear (Clear); Urine Color Yellow (Yellow); Urine Protein, UAD Negative (Negative); Urine Specific Gravity 1.018 (1.001-1.035); Urine Urobilinogen Normal (Negative); Urine WBC 1 /hpf (0 - 5)
[2024-02-04] MEDS: MIDAZOLAM DRIP 50 mg/50mL 50 ML IV SCH (21:24)
[2024-02-04] MEDS: PROPOFOL 100 ML IV SCH (21:25)
[2024-02-04] MEDS: fentaNYL Drip 2500mCg/250mlNS 250 ML IV SCH (21:25)
[2024-02-04] MEDS: NOREPINEPHRINE 8 MG/250ML KIT 250 ML IV SCH (21:26)
[2024-02-04] MEDS: chlordiazePOXIDE HCL 25 MG CAP PO SCH (21:29)
[2024-02-04] MEDS: levETIRAcetam 1000 mg/100ml 100 ML IV ONE (21:31)
[2024-02-05] VITALS (107 sets, daily range): BP systolic 85–123; BP diastolic 33–82; PULSE 46–72; RESP 12–22; TEMP 97.3–100.2; O2SAT 89–100
[2024-02-05 04:05] LABS: Basophils # (auto) 0.1 10 ^3/uL (0-0.2); Basophils % (auto) 0.9 % (0.0-2.0); Eosinophils # (auto) 0.2 10 ^3/uL (0-0.8); Eosinophils % (auto) 2.8 % (0.0-7.0); Hematocrit 29.4 % (36.0-46.0); Hemoglobin 9.3 g/dL (12.2-16.2); Lymphocytes # (auto) 1.8 10 ^3/uL (0.4-5.4); Lymphocytes % (auto) 28.1 % (10.0-50.0); Mean Corpuscular Hemoglobin 28.6 pg (28.0-32.0); Mean Corpuscular Hgb Conc. 31.5 g/dL (32.0-36.0); Mean Corpuscular Volume 90.9 fL (80.0-100.0); Monocytes # (auto) 0.5 10 ^3/uL (0-1.3); Neutrophils # (auto) 3.9 10 ^3/uL (1.6-8.6); Neutrophils % (auto) 60.2 % (37.0-80.0); Red Blood Cells 3.23 10^6/uL (4.0-5.20); White Blood Cell 6.4 10^3/uL (4.4-10.8)
[2024-02-05 04:07] LABS: Red Cell Distribution Width 21.6 % (11.8-14.3)
[2024-02-05 04:27] LABS: Alanine Aminotransferase 16 U/L (7-40); Albumin 2.8 g/dL (3.2-4.8); Alkaline Phosphatase 84 U/L (46-116); Anion Gap 6 (5-15); BUN/Creatinine Ratio 18.6 (10.0-20.0); Blood Urea Nitrogen 8 mg/dL (9-23); Calcium 7.6 mg/dL (8.7-10.4); Carbon Dioxide 24 mmol/L (20-30); Chloride 112 mmol/L (98-107); Glucose 87 mg/dL (74-106); Potassium 3.1 mmol/L (3.5-5.1); Sodium 142 mmol/L (136-145)
[2024-02-05 04:28] LABS: Aspartate Aminotransferase 22 U/L (13-40); Bilirubin, Total 0.3 mg/dL (0.2-1.0); Total Protein 5.1 g/dL (5.7-8.2)
[2024-02-05] MEDS: POTASSIUM CHL 20MEQ/100ML 100 ML IV ONE (05:22)
[2024-02-05] MEDS: chlordiazePOXIDE HCL 25 MG CAP PO SCH (08:10)
[2024-02-05 08:22] LABS: Base Excess -3.9 mmol/L (-2.0-2.0)
[2024-02-05] MEDS: POTASSIUM CHL 20MEQ/100ML 100 ML IV SCH (11:15)
[2024-02-05] MEDS: PANTOPRAZOLE 40 MG/10 ML VIAL INJ IV ONE (13:00)
[2024-02-05 13:32] LABS: INR 1.06 (0.9-1.15); Partial Thromboplastin Time 27.1 SEC (24.5-34.5); Prothrombin Time 11.1 sec (9.3-11.8)
[2024-02-06] VITALS (103 sets, daily range): BP systolic 91–118; BP diastolic 33–80; PULSE 60–92; RESP 12–25; TEMP 98.8–100; O2SAT 67–100
[2024-02-06 04:02] LABS: Basophils # (auto) 0.1 10 ^3/uL (0-0.2); Basophils % (auto) 0.7 % (0.0-2.0); Eosinophils # (auto) 0.1 10 ^3/uL (0-0.8); Eosinophils % (auto) 1.5 % (0.0-7.0); Hematocrit 30.5 % (36.0-46.0); Hemoglobin 9.6 g/dL (12.2-16.2); Lymphocytes # (auto) 1.5 10 ^3/uL (0.4-5.4); Lymphocytes % (auto) 19.9 % (10.0-50.0); Mean Corpuscular Hemoglobin 28.9 pg (28.0-32.0); Mean Corpuscular Hgb Conc. 31.4 g/dL (32.0-36.0); Monocytes # (auto) 0.9 10 ^3/uL (0-1.3); Monocytes % (auto) 11.7 % (0.0-12.0); Neutrophils # (auto) 5.1 10 ^3/uL (1.6-8.6); Neutrophils % (auto) 66.2 % (37.0-80.0); Red Blood Cells 3.31 10^6/uL (4.0-5.20); White Blood Cell 7.7 10^3/uL (4.4-10.8)
[2024-02-06 04:08] LABS: Red Cell Distribution Width 20.8 % (11.8-14.3)
[2024-02-06 04:17] LABS: % Iron Saturation 6.2 % (15-50)
[2024-02-06 04:18] LABS: Alanine Aminotransferase 17 U/L (7-40); Albumin 2.9 g/dL (3.2-4.8); Alkaline Phosphatase 86 U/L (46-116); Calcium 7.8 mg/dL (8.7-10.4); Carbon Dioxide 22 mmol/L (20-30); Chloride 111 mmol/L (98-107); Follicle Stimulating Hormone 3.83 IU/L (SEE BELOW); Glucose 90 mg/dL (74-106)
[2024-02-06 04:19] LABS: Anion Gap 5 (5-15); Aspartate Aminotransferase 27 U/L (13-40); Bilirubin, Total 0.5 mg/dL (0.2-1.0); Ferritin 41.1 ng/mL (10-291); Potassium 3.9 mmol/L (3.5-5.1); Sodium 138 mmol/L (136-145); Total Protein 5.3 g/dL (5.7-8.2)
[2024-02-06 04:30] LABS: BUN/Creatinine Ratio 11.1 (10.0-20.0); Blood Urea Nitrogen < 5 mg/dL (9-23)
[2024-02-06 05:53] LABS: Anisocytosis Slight; Platelet Estimate Adequate; Stomatocytes Many
[2024-02-06 08:45] LABS: Base Excess -6.5 mmol/L (-2.0-2.0)
[2024-02-06] MEDS: PANTOPRAZOLE 40 MG/10 ML VIAL INJ IV SCH (10:03)
[2024-02-06] MEDS: Jevity 1.2 Cal/Fiber 1 Liter GT SCH (10:29)
[2024-02-06] MEDS: SODIUM CHLORIDE 0.9% 1,000 ML IV SCH (13:15)
[2024-02-06] MEDS: DexmedeTOMIDine 200 MCG in D5W 5% 48 ML IV SCH (13:15)
[2024-02-06] MEDS: PIPERACILLIN-TAZOB 3.375GM 100 ML IV ONE (15:38)
[2024-02-06] MEDS: PIPERACILLIN-TAZOB 3.375GM 100 ML IV SCH (22:41)
[2024-02-07] VITALS (104 sets, daily range): BP systolic 77–132; BP diastolic 37–99; PULSE 64–101; RESP 7–30; TEMP 98.5–100.8; O2SAT 91–100
[2024-02-07 04:12] LABS: Basophils # (auto) 0 10 ^3/uL (0-0.2); Basophils % (auto) 0.6 % (0.0-2.0); Eosinophils # (auto) 0.1 10 ^3/uL (0-0.8); Hematocrit 27.8 % (36.0-46.0); Hemoglobin 8.8 g/dL (12.2-16.2); Lymphocytes # (auto) 0.8 10 ^3/uL (0.4-5.4); Lymphocytes % (auto) 14.2 % (10.0-50.0); Mean Corpuscular Hemoglobin 28.6 pg (28.0-32.0); Mean Corpuscular Hgb Conc. 31.7 g/dL (32.0-36.0); Mean Corpuscular Volume 90.3 fL (80.0-100.0); Monocytes # (auto) 0.8 10 ^3/uL (0-1.3); Monocytes % (auto) 13.9 % (0.0-12.0); Neutrophils # (auto) 4.1 10 ^3/uL (1.6-8.6); Neutrophils % (auto) 69.3 % (37.0-80.0); Red Blood Cells 3.07 10^6/uL (4.0-5.20); White Blood Cell 5.9 10^3/uL (4.4-10.8)
[2024-02-07 04:16] LABS: Chloride 108 mmol/L (98-107); Potassium 3.7 mmol/L (3.5-5.1); Sodium 136 mmol/L (136-145)
[2024-02-07 04:17] LABS: Anion Gap 4 (5-15); Carbon Dioxide 24 mmol/L (20-30)
[2024-02-07 04:18] LABS: Calcium 7.8 mg/dL (8.7-10.4)
[2024-02-07 04:23] LABS: Creatine Kinase IFCC 218 U/L (34-145); Glucose 100 mg/dL (74-106); Magnesium 1.9 mg/dL (1.6-2.6)
[2024-02-07 04:29] LABS: Red Cell Distribution Width 20.6 % (11.8-14.3)
[2024-02-07 04:48] LABS: BUN/Creatinine Ratio 11.9 (10.0-20.0); Blood Urea Nitrogen < 5 mg/dL (9-23)
[2024-02-07 05:08] LABS: CRP High Sensitivity 15.03 mg/dL (<1.0)
[2024-02-07 07:52] LABS: Base Excess -4.6 mmol/L (-2.0-2.0)
[2024-02-07 09:06] LABS: Testosterone <3 ng/dL (8-60)
[2024-02-07] MEDS: FLUCONAZOLE 200MG/100ML 100 ML IV ONE (13:32)
[2024-02-07 13:45] LABS: Base Excess -3.2 mmol/L (-2.0-2.0)
[2024-02-07] MEDS: NYSTATIN TOPICAL POWDER 15GM TOP ONE (18:54)
[2024-02-07] MEDS: NYSTATIN TOPICAL POWDER 15GM TOP SCH (21:31)
[2024-02-08] VITALS (86 sets, daily range): BP systolic 87–145; BP diastolic 47–89; PULSE 54–96; RESP 11–33; TEMP 98.4–100; O2SAT 86–100
[2024-02-08 03:54] LABS: Basophils # (auto) 0 10 ^3/uL (0-0.2); Basophils % (auto) 0.6 % (0.0-2.0); Eosinophils # (auto) 0.1 10 ^3/uL (0-0.8); Eosinophils % (auto) 2.1 % (0.0-7.0); Hematocrit 27.2 % (36.0-46.0); Hemoglobin 8.5 g/dL (12.2-16.2); Lymphocytes # (auto) 0.7 10 ^3/uL (0.4-5.4); Lymphocytes % (auto) 15.9 % (10.0-50.0); Mean Corpuscular Hgb Conc. 31.3 g/dL (32.0-36.0); Mean Corpuscular Volume 89.5 fL (80.0-100.0); Monocytes # (auto) 0.6 10 ^3/uL (0-1.3); Monocytes % (auto) 13.2 % (0.0-12.0); Neutrophils # (auto) 2.9 10 ^3/uL (1.6-8.6); Neutrophils % (auto) 68.2 % (37.0-80.0); Red Blood Cells 3.04 10^6/uL (4.0-5.20); White Blood Cell 4.2 10^3/uL (4.4-10.8)
[2024-02-08 04:11] LABS: Alanine Aminotransferase 18 U/L (7-40); Albumin 2.7 g/dL (3.2-4.8); Alkaline Phosphatase 82 U/L (46-116); Anion Gap 2 (5-15); Aspartate Aminotransferase 24 U/L (13-40); Bilirubin, Total 0.6 mg/dL (0.2-1.0); Carbon Dioxide 27 mmol/L (20-30); Chloride 109 mmol/L (98-107); Glucose 83 mg/dL (74-106); Magnesium 1.9 mg/dL (1.6-2.6); Potassium 3.7 mmol/L (3.5-5.1); Sodium 138 mmol/L (136-145)
[2024-02-08 04:24] LABS: BUN/Creatinine Ratio 12.8 (10.0-20.0); Blood Urea Nitrogen < 5 mg/dL (9-23)
[2024-02-08] MEDS ORDERED: ALBUTEROL SULF 2.5 MG/0.5ML(0.5%) NEB SOLN NEB PRN (09:15)
[2024-02-08] MEDS: FLUCONAZOLE 200MG/100ML 100 ML IV SCH (10:00)
[2024-02-08] MEDS ORDERED: IRON SUCROSE COMPLEX 100 ML IV SCH (12:00)
[2024-02-08] MEDS ORDERED: ACETYLCYSTEINE 10 %(100MG/ML) SOL 4ML NEB SCH (12:00)
[2024-02-08] MEDS: MORPHINE SULFATE INJ 2 MG/ml SYRG IV PRN (16:18)
[2024-02-08] MEDS: IPRATROPIUM BROM 0.5 MG/2.5ML INH SOL NEB SCH (18:05)
[2024-02-08] MEDS: LORazepam 2MG/ML-1ML VIAL IV PRN (21:11)
[2024-02-09] VITALS (38 sets, daily range): BP systolic 101–128; BP diastolic 57–89; PULSE 52–102; RESP 14–36; TEMP 98–99.6; O2SAT 90–100
[2024-02-09] MEDS ORDERED: HYDROcodone-ACET 5/325MG TAB PO PRN (01:00)
[2024-02-09 06:07] LABS: Basophils # (auto) 0 10 ^3/uL (0-0.2); Eosinophils # (auto) 0.1 10 ^3/uL (0-0.8); Hemoglobin 8.4 g/dL (12.2-16.2); Lymphocytes # (auto) 0.9 10 ^3/uL (0.4-5.4); Nucleated Red Blood Cells % 0.2 %
[2024-02-09 06:09] LABS: Basophils % (auto) 1.1 % (0.0-2.0); Eosinophils % (auto) 4.2 % (0.0-7.0); Hematocrit 26.3 % (36.0-46.0); Lymphocytes % (auto) 27.7 % (10.0-50.0); Mean Corpuscular Hemoglobin 28.3 pg (28.0-32.0); Mean Corpuscular Hgb Conc. 31.9 g/dL (32.0-36.0); Mean Corpuscular Volume 88.7 fL (80.0-100.0); Monocytes # (auto) 0.5 10 ^3/uL (0-1.3); Monocytes % (auto) 14.6 % (0.0-12.0); Neutrophils # (auto) 1.7 10 ^3/uL (1.6-8.6); Neutrophils % (auto) 52.4 % (37.0-80.0); Red Blood Cells 2.97 10^6/uL (4.0-5.20); Red Cell Distribution Width 19.8 % (11.8-14.3); White Blood Cell 3.3 10^3/uL (4.4-10.8)
[2024-02-09 06:24] LABS: Alanine Aminotransferase 12 U/L (7-40); Albumin 2.9 g/dL (3.2-4.8); Alkaline Phosphatase 75 U/L (46-116); Amylase 43 U/L (30-118); Anion Gap 7 (5-15); Aspartate Aminotransferase 22 U/L (13-40); BUN/Creatinine Ratio 12.8 (10.0-20.0); Blood Urea Nitrogen < 5 mg/dL (9-23); Calcium 8.1 mg/dL (8.5-10.1); Carbon Dioxide 27 mmol/L (20-30); Chloride 108 mmol/L (98-107); Glucose 81 mg/dL (74-106); Potassium 3.7 mmol/L (3.5-5.1); Sodium 142 mmol/L (136-145)
[2024-02-09 06:25] LABS: Bilirubin, Total 0.4 mg/dL (0.2-1.0)
[2024-02-09 07:15] LABS: Lipase 30 U/L (12-53)
[2024-02-09] MEDS: LORazepam 0.5 MG TAB PO PRN (18:12)
[2024-02-09] MEDS: ALBUTEROL SULF 2.5 MG/0.5ML(0.5%) NEB SOLN NEB PRN (19:03)
[2024-02-10] VITALS (16 sets, daily range): BP systolic 114–127; BP diastolic 63–87; PULSE 61–114; RESP 16–21; TEMP 97.9–99; O2SAT 91–100
[2024-02-10 06:22] LABS: Basophils # (auto) 0.1 10 ^3/uL (0-0.2); Basophils % (auto) 1.4 % (0.0-2.0); Eosinophils # (auto) 0.1 10 ^3/uL (0-0.8); Hematocrit 29.1 % (36.0-46.0); Hemoglobin 9.3 g/dL (12.2-16.2); Lymphocytes # (auto) 1.2 10 ^3/uL (0.4-5.4); Mean Corpuscular Hemoglobin 27.9 pg (28.0-32.0); Mean Corpuscular Volume 87.2 fL (80.0-100.0); Monocytes # (auto) 0.5 10 ^3/uL (0-1.3); Monocytes % (auto) 11.5 % (0.0-12.0); Neutrophils # (auto) 2.2 10 ^3/uL (1.6-8.6); Neutrophils % (auto) 55.1 % (37.0-80.0); Nucleated Red Blood Cells % 0.1 %; Red Blood Cells 3.34 10^6/uL (4.0-5.20); Red Cell Distribution Width 19.4 % (11.8-14.3)
[2024-02-10 06:47] LABS: Anion Gap 6 (5-15); Carbon Dioxide 27 mmol/L (20-30); Chloride 110 mmol/L (98-107); Potassium 3.2 mmol/L (3.5-5.1); Sodium 143 mmol/L (136-145)
[2024-02-10 06:49] LABS: Calcium 8.2 mg/dL (8.7-10.4)
[2024-02-10 06:53] LABS: Glucose 91 mg/dL (74-106)
[2024-02-10 06:54] LABS: Magnesium 1.9 mg/dL (1.6-2.6)
[2024-02-10 06:56] LABS: BUN/Creatinine Ratio 10.4 (10.0-20.0); Blood Urea Nitrogen < 5 mg/dL (9-23)
[2024-02-10 08:13] LABS: COVID19 ANTIGEN SOFIA FIA NEGATIVE (NEGATIVE)
[2024-02-10 08:14] LABS: Rapid Influenza A Negative (Negative); Rapid Influenza B Negative (Negative)
[2024-02-10] MEDS: POTASSIUM EFFERVESENT TAB 25 MEQ GT ONE (11:55)
[2024-02-11] VITALS (16 sets, daily range): BP systolic 110–140; BP diastolic 69–95; PULSE 51–97; RESP 16–20; TEMP 85–98.6; O2SAT 91–100
[2024-02-11 06:22] LABS: Basophils # (auto) 0.1 10 ^3/uL (0-0.2); Basophils % (auto) 1.4 % (0.0-2.0); Eosinophils # (auto) 0.1 10 ^3/uL (0-0.8); Eosinophils % (auto) 2.1 % (0.0-7.0); Hematocrit 28.6 % (36.0-46.0); Hemoglobin 9.4 g/dL (12.2-16.2); Lymphocytes # (auto) 1.6 10 ^3/uL (0.4-5.4); Lymphocytes % (auto) 33.7 % (10.0-50.0); Mean Corpuscular Hemoglobin 28.8 pg (28.0-32.0); Mean Corpuscular Hgb Conc. 32.8 g/dL (32.0-36.0); Mean Corpuscular Volume 87.8 fL (80.0-100.0); Monocytes # (auto) 0.4 10 ^3/uL (0-1.3); Monocytes % (auto) 9.3 % (0.0-12.0); Neutrophils # (auto) 2.6 10 ^3/uL (1.6-8.6); Neutrophils % (auto) 53.5 % (37.0-80.0); Nucleated Red Blood Cells % 0.1 %; Red Blood Cells 3.26 10^6/uL (4.0-5.20); White Blood Cell 4.8 10^3/uL (4.4-10.8)
[2024-02-11 06:25] LABS: Anion Gap 8 (5-15); Carbon Dioxide 25 mmol/L (20-30); Chloride 109 mmol/L (98-107); Potassium 3.4 mmol/L (3.5-5.1); Sodium 142 mmol/L (136-145)
[2024-02-11 06:26] LABS: Calcium 8.1 mg/dL (8.5-10.1)
[2024-02-11 06:29] LABS: Red Cell Distribution Width 20.4 % (11.8-14.3)
[2024-02-11 06:31] LABS: Glucose 90 mg/dL (74-106)
[2024-02-11 06:35] LABS: BUN/Creatinine Ratio 9.8 (10.0-20.0); Blood Urea Nitrogen < 5 mg/dL (9-23)
[2024-02-11] MEDS: POTASSIUM CHL 20 Meq TABLET PO ONE (18:32)
[2024-02-11] MEDS: MELATONIN 5 MG TAB PO ONE (22:40)
[2024-02-12] VITALS (14 sets, daily range): BP systolic 115–150; BP diastolic 67–92; PULSE 52–101; RESP 16–20; TEMP 98.1–98.6; O2SAT 92–100
[2024-02-12] MEDS: LORazepam 2MG/ML-1ML VIAL IV PRN (05:20)
[2024-02-12] MEDS: ALBUTEROL SULF 2.5 MG/0.5ML(0.5%) NEB SOLN ONE (05:42)
[2024-02-12] MEDS: IPRATROPIUM BROM 0.5 MG/2.5ML INH SOL ONE (05:42)
[2024-02-12 07:16] LABS: Anion Gap 9 (5-15); Calcium 8.1 mg/dL (8.5-10.1); Carbon Dioxide 24 mmol/L (20-30); Chloride 108 mmol/L (98-107); Potassium 3.7 mmol/L (3.5-5.1); Sodium 141 mmol/L (136-145)
[2024-02-12 07:22] LABS: Glucose 83 mg/dL (74-106)
[2024-02-12 07:30] LABS: Basophils # (auto) 0.1 10 ^3/uL (0-0.2); Basophils % (auto) 2.1 % (0.0-2.0); Eosinophils # (auto) 0.2 10 ^3/uL (0-0.8); Eosinophils % (auto) 2.7 % (0.0-7.0); Hemoglobin 8.8 g/dL (12.2-16.2); Lymphocytes # (auto) 1.9 10 ^3/uL (0.4-5.4); Lymphocytes % (auto) 31.2 % (10.0-50.0); Mean Corpuscular Hemoglobin 28.7 pg (28.0-32.0); Mean Corpuscular Hgb Conc. 32.8 g/dL (32.0-36.0); Mean Corpuscular Volume 87.7 fL (80.0-100.0); Monocytes # (auto) 0.5 10 ^3/uL (0-1.3); Monocytes % (auto) 7.5 % (0.0-12.0); Neutrophils # (auto) 3.4 10 ^3/uL (1.6-8.6); Neutrophils % (auto) 56.5 % (37.0-80.0); Nucleated Red Blood Cells % 0.1 %; Red Blood Cells 3.07 10^6/uL (4.0-5.20); Red Cell Distribution Width 20.5 % (11.8-14.3); White Blood Cell 6.1 10^3/uL (4.4-10.8)
[2024-02-12] MEDS ORDERED: LORazepam 2MG/ML-1ML VIAL IV PRN (10:00)
[2024-02-12 12:31] LABS: BUN/Creatinine Ratio 11.4 (10.0-20.0); Blood Urea Nitrogen 5 mg/dL (9-23)
[2024-02-12] MEDS: traZODone HCL 50 MG TAB PO SCH (21:29)
[2024-02-12] MEDS: levETIRAcetam 500 MG TAB PO SCH (21:30)
[2024-02-12] MEDS: AMOXICILLIN/CLAVUL 875 MG TAB PO SCH (23:22)
[2024-02-13] VITALS (10 sets, daily range): BP systolic 107–125; BP diastolic 61–80; PULSE 54–84; RESP 16–20; TEMP 98–98.7; O2SAT 90–100
[2024-02-13 07:27] LABS: Anion Gap 6 (5-15); Carbon Dioxide 27 mmol/L (20-30); Chloride 109 mmol/L (98-107); Potassium 3.6 mmol/L (3.5-5.1); Sodium 142 mmol/L (136-145)
[2024-02-13 07:28] LABS: Calcium 8.5 mg/dL (8.7-10.4)
[2024-02-13 07:33] LABS: Blood Urea Nitrogen 6 mg/dL (9-23); Glucose 75 mg/dL (74-106); Magnesium 2.1 mg/dL (1.6-2.6)
[2024-02-13 08:27] LABS: Hematocrit 29.3 % (36.0-46.0); Hemoglobin 9.2 g/dL (12.2-16.2); Mean Corpuscular Hemoglobin 28.4 pg (28.0-32.0); Mean Corpuscular Hgb Conc. 31.4 g/dL (32.0-36.0); Mean Corpuscular Volume 90.2 fL (80.0-100.0); Red Blood Cells 3.25 10^6/uL (4.0-5.20); White Blood Cell 6.5 10^3/uL (4.4-10.8)
[2024-02-13 08:32] LABS: Blast Cells 0; Metamyelocytes % 0; Myelocytes % 0; Promyelocytes % 0; Reactive Lymphocytes 0; Red Cell Distribution Width 20.4 % (11.8-14.3)
[2024-02-13 12:35] LABS: Anisocytosis Slight; Band Neutrophils % (manual) 3; Basophils % (manual) 1 (0.0-2.0); Eosinophils % (manual) 3 (0-7); Lymphocytes % (manual) 23 (10.0-50.0); Monocytes % (manual) 3 (0-12); Platelet Estimate Increased
[2024-02-13] MEDS ORDERED: NYS15PW TOP (13:12)
[2024-02-13] MEDS ORDERED: AUG875T PO (13:12)
[2024-02-13] MEDS ORDERED: KEP500T PO (13:12)
[2024-02-18 12:06] LABS: Free Testosterone(Direct) 0.3 pg/mL (0.0-4.2)
== END 2024-02-13 19:20 | disposition left against medical advice (07) | DRG 720 ==
LOC: EDBD 16:14 → ER 16:14 → OVERFLOW 02-01 09:31 → CENTRAL 02-01 22:58 → WEST WING 02-04 16:21 → ICU WEST 02-04 19:16 → DOU IN ICU 02-08 10:37 → TELE-E-ADS 02-09 10:21 → TELE-EAST 02-09 18:00 → EAST 02-12 14:53
PROVIDERS: ADMIT Internal Medicine; ATTEND Internal Medicine
PROC: 05HY33Z Insertion of Infusion Device into Upper Vein, Percutaneous Approach (ICD-10-PCS; 2024-02-01)
PROC: 5A1945Z Respiratory Ventilation, 24-96 Consecutive Hours (ICD-10-PCS; principal; 2024-02-04)
PROC: 0BH17EZ Insertion of Endotracheal Airway into Trachea, Via Natural or Artificial Opening (ICD-10-PCS; 2024-02-04)
PROC: 05HA33Z Insertion of Infusion Device into Left Brachial Vein, Percutaneous Approach (ICD-10-PCS; 2024-02-08)
PROC: B54NZZA Ultrasonography of Left Upper Extremity Veins, Guidance (ICD-10-PCS; 2024-02-08)
DX: A41.9 Sepsis, unspecified organism (principal); J96.01 Acute respiratory failure with hypoxia; J69.0 Pneumonitis due to inhalation of food and vomit; R65.21 Severe sepsis with septic shock; G92.8 Other toxic encephalopathy; E87.20 Acidosis, unspecified; J18.9 Pneumonia, unspecified organism; G40.409 Other generalized epilepsy and epileptic syndromes, not intractable, without status epilepticus; B37.2 Candidiasis of skin and nail; T51.91XA Toxic effect of unspecified alcohol, accidental (unintentional), initial encounter; R45.851 Suicidal ideations; Z20.822 Contact with and (suspected) exposure to COVID-19; F14.10 Cocaine abuse, uncomplicated; F10.239 Alcohol dependence with withdrawal, unspecified; D64.9 Anemia, unspecified; E87.6 Hypokalemia; F43.23 Adjustment disorder with mixed anxiety and depressed mood; F32.A Depression, unspecified; F32.9 Major depressive disorder, single episode, unspecified; L68.0 Hirsutism; F17.210 Nicotine dependence, cigarettes, uncomplicated; Z53.29 Procedure and treatment not carried out because of patient's decision for other reasons; Z83.3 Family history of diabetes mellitus; Z91.51 Personal history of suicidal behavior; Z91.199 Patient's noncompliance with other medical treatment and regimen due to unspecified reason; Z98.84 Bariatric surgery status; Z79.899 Other long term (current) drug therapy; Z80.7 Family history of other malignant neoplasms of lymphoid, hematopoietic and related tissues; Z82.49 Family history of ischemic heart disease and other diseases of the circulatory system; Z90.49 Acquired absence of other specified parts of digestive tract
CPT/HCPCS: 36415; 36600; 70450; 71045; 72125; 74177; 74181; 76856; 80048; 80053; 80061; 80307; 80320; 81001; 81025; 82150; 82533; 82542; 82550; 82607; 82728; 82746; 82805; 82962; 83001; 83540; 83550; 83605; 83690; 83735; 83880; 84146; 84402; 84403; 84443; 84702; 85007; 85025; 85027; 85610; 85730; 86141; 86301; 87040; 87070; 87081; 87086; 87205; 87426; 87804; 92610; 94002; 94003; 94640; 95819; 96361; 96374; 96375; 96376; 97110; 97116; 97163; 97530; C9113; G0378; J0330; J1450; J2250; J2405; J2543; J2704; J3480; J7060

== ENCOUNTER 2024-02-16 20:59 | Inpatient (IN) | payer MEDICAID ==
[~2024-02-16] VITALS: Ht 167.6 cm; Wt 80.0 kg
[~2024-02-16 20:59] MED LIST changes: +AUG875T PO; +KEP500T PO; +NYS15PW TOP
[2024-02-16 22:04] LABS: Basophils # (auto) 0.1 10 ^3/uL (0-0.2); Basophils % (auto) 0.9 % (0.0-2.0); Eosinophils # (auto) 0 10 ^3/uL (0-0.8); Eosinophils % (auto) 0.3 % (0.0-7.0); Hematocrit 35.7 % (36.0-46.0); Hemoglobin 11.1 g/dL (12.2-16.2); Lymphocytes # (auto) 1.7 10 ^3/uL (0.4-5.4); Mean Corpuscular Hemoglobin 27.3 pg (28.0-32.0); Mean Corpuscular Hgb Conc. 30.9 g/dL (32.0-36.0); Mean Corpuscular Volume 88.4 fL (80.0-100.0); Monocytes # (auto) 0.6 10 ^3/uL (0-1.3); Monocytes % (auto) 5.5 % (0.0-12.0); Neutrophils # (auto) 8.6 10 ^3/uL (1.6-8.6); Neutrophils % (auto) 78.3 % (37.0-80.0); Nucleated Red Blood Cells % 0.1 %; Red Blood Cells 4.04 10^6/uL (4.0-5.20)
[2024-02-16 22:06] LABS: Red Cell Distribution Width 20.4 % (11.8-14.3)
[2024-02-16 22:23] VITALS: PULSE 68; RESP 20; O2SAT 94
[2024-02-16 22:25] LABS: Alanine Aminotransferase 85 U/L (7-40); Albumin 3.9 g/dL (3.2-4.8); Alkaline Phosphatase 77 U/L (46-116); Anion Gap 12 (5-15); Aspartate Aminotransferase 89 U/L (13-40); BUN/Creatinine Ratio 8.8 (10.0-20.0); Bilirubin, Total 0.2 mg/dL (0.2-1.0); Blood Urea Nitrogen 6 mg/dL (9-23); Calcium 8.7 mg/dL (8.5-10.1); Carbon Dioxide 15 mmol/L (20-30); Chloride 109 mmol/L (98-107); Glucose 92 mg/dL (74-106); Potassium 3.4 mmol/L (3.5-5.1); Salicylate < 3.0 mg/dL (2.8-20.0); Total Protein 7.2 g/dL (5.7-8.2)
[2024-02-16 22:29] LABS: Anisocytosis Slight
[2024-02-16 22:30] LABS: Sodium 136 mmol/L (136-145)
[2024-02-16 22:31] LABS: Large Platelets FEW; Ovalocytes FEW; Platelet Estimate Marked
[2024-02-16 22:32] LABS: Giant Platelets Few
[2024-02-16 22:33] LABS: Blood Alcohol 291.2 mg/dL (<10)
[2024-02-16 22:42] LABS: Magnesium 2.2 mg/dL (1.6-2.6)
[2024-02-16 22:47] LABS: Urine Bacteria FEW /hpf (None Seen); Urine Blood Negative /uL (Negative); Urine Clarity Clear (Clear); Urine Color Colorless (Yellow); Urine Protein, UAD Negative (Negative); Urine Specific Gravity 1.009 (1.001-1.035); Urine Urobilinogen Normal (Negative); Urine WBC 1 /hpf (0 - 5); Urine pH 5.5 (5.0-9.0)
[2024-02-16] MEDS: SODIUM CHLORIDE 0.9% 1,000 ML IV ONE (23:02)
[2024-02-16 23:11] LABS: Amphetamine Screen, Urine Neg (NEGATIVE); Barbiturate Scree,Urine Neg (NEGATIVE); Benzodiazephine Screen, Urine Pos (NEGATIVE); Cannabinoid Screen, Urine Pos (NEGATIVE); Cocaine Screen, Urine Neg (NEGATIVE); Opiate Scree,Urine Pos (NEGATIVE); Phencyclidine Screen, Urine Neg (NEGATIVE)
[2024-02-17] MEDS: FOLIC ACID 1 MG, MAGNESIUM SULF SDV 50% 8 MEQ, MULTIPLE VITAMIN 10 ML, THIAMINE INJ 100... INJ SCH (01:06)
[2024-02-17] MEDS: MVI in SODIUM CHLORIDE 0.9% 1,010 ML ONE (01:11)
[2024-02-17] MEDS: SODIUM CHLORIDE 0.9% 1,000 ML IV ONE ×2 (02:30→04:36)
[2024-02-17] MEDS: NOREPINEPHRINE 8 MG/250ML KIT 250 ML IV SCH (05:59)
[2024-02-17] MEDS ORDERED: ONDANSETRON HCL 4 MG/2 ML VIAL IV PRN (06:45)
[2024-02-17] MEDS ORDERED: ACETAMINOPHEN 325 MG TAB PO PRN (06:45)
[2024-02-17] MEDS ORDERED: MORPHINE SULFATE INJ 2 MG/ml SYRG IV PRN (06:45)
[2024-02-17] MEDS ORDERED: DOCUSATE SOD 100 MG CAP PO PRN (06:45)
[2024-02-17] MEDS ORDERED: HYDROcodone-ACET 5/325MG TAB PO PRN (06:45)
[2024-02-17] MEDS ORDERED: NITROGLYCERIN 0.4 MG SL TAB SL PRN (06:45)
[2024-02-17 06:56] LABS: Basophils # (auto) 0.1 10 ^3/uL (0-0.2); Basophils % (auto) 1.5 % (0.0-2.0); Eosinophils # (auto) 0.1 10 ^3/uL (0-0.8); Eosinophils % (auto) 0.9 % (0.0-7.0); Hematocrit 29.2 % (36.0-46.0); Lymphocytes # (auto) 1.4 10 ^3/uL (0.4-5.4); Lymphocytes % (auto) 18.4 % (10.0-50.0); Mean Corpuscular Hgb Conc. 30.8 g/dL (32.0-36.0); Mean Corpuscular Volume 87.7 fL (80.0-100.0); Monocytes # (auto) 0.4 10 ^3/uL (0-1.3); Monocytes % (auto) 5.1 % (0.0-12.0); Neutrophils # (auto) 5.8 10 ^3/uL (1.6-8.6); Neutrophils % (auto) 74.1 % (37.0-80.0); Red Blood Cells 3.33 10^6/uL (4.0-5.20); Red Cell Distribution Width 20.2 % (11.8-14.3); White Blood Cell 7.8 10^3/uL (4.4-10.8)
[2024-02-17 07:01] LABS: Alanine Aminotransferase 55 U/L (7-40); Albumin 2.9 g/dL (3.2-4.8); Alkaline Phosphatase 57 U/L (46-116); Anion Gap 10 (5-15); Aspartate Aminotransferase 55 U/L (13-40); BUN/Creatinine Ratio 15.6 (10.0-20.0); Blood Urea Nitrogen 7 mg/dL (9-23); Calcium 7.3 mg/dL (8.5-10.1); Carbon Dioxide 18 mmol/L (20-30); Chloride 117 mmol/L (98-107); Potassium 3.5 mmol/L (3.5-5.1)
[2024-02-17 07:02] LABS: Total Protein 5.3 g/dL (5.7-8.2)
[2024-02-17] MEDS ORDERED: LORazepam 2MG/ML-1ML VIAL IV PRN (08:15)
[2024-02-17 08:22] LABS: Bilirubin, Total < 0.2 mg/dL (0.2-1.0); Glucose 81 mg/dL (74-106); Sodium 145 mmol/L (136-145)
[2024-02-17] MEDS: SODIUM CHLORIDE 0.9% 1,000 ML IV SCH (09:00)
[2024-02-17] MEDS: IBUPROFEN 600 MG TAB PO PRN (11:18)
[2024-02-17 19:27] VITALS: TEMP 98.4
[2024-02-17 20:00] VITALS: PULSE 64; RESP 18; O2SAT 96
[2024-02-17] MEDS: IOHEXOL 350 MG/ML 100ML IJ ONE (20:26)
[2024-02-17] MEDS: LORazepam 2MG/ML-1ML VIAL IV ONE (23:59)
[2024-02-18] MEDS: LORazepam 2MG/ML-1ML VIAL IV PRN (04:51)
[2024-02-18 06:10] LABS: Basophils # (auto) 0.1 10 ^3/uL (0-0.2); Basophils % (auto) 1.3 % (0.0-2.0); Eosinophils # (auto) 0.1 10 ^3/uL (0-0.8); Hematocrit 28.2 % (36.0-46.0); Lymphocytes # (auto) 1.9 10 ^3/uL (0.4-5.4); Monocytes # (auto) 0.4 10 ^3/uL (0-1.3)
[2024-02-18 06:13] LABS: Eosinophils % (auto) 1.9 % (0.0-7.0); Hemoglobin 8.9 g/dL (12.2-16.2); Lymphocytes % (auto) 23.9 % (10.0-50.0); Mean Corpuscular Hgb Conc. 31.5 g/dL (32.0-36.0); Mean Corpuscular Volume 88.7 fL (80.0-100.0); Monocytes % (auto) 5.2 % (0.0-12.0); Neutrophils # (auto) 5.3 10 ^3/uL (1.6-8.6); Neutrophils % (auto) 67.7 % (37.0-80.0); Red Blood Cells 3.18 10^6/uL (4.0-5.20); White Blood Cell 7.8 10^3/uL (4.4-10.8)
[2024-02-18 06:15] LABS: Albumin 2.7 g/dL (3.2-4.8); Alkaline Phosphatase 54 U/L (46-116); Anion Gap 7 (5-15); Aspartate Aminotransferase 23 U/L (13-40); BUN/Creatinine Ratio 19.1 (10.0-20.0); Blood Urea Nitrogen 9 mg/dL (9-23); Carbon Dioxide 22 mmol/L (20-30); Chloride 113 mmol/L (98-107); Glucose 84 mg/dL (74-106); Potassium 3.4 mmol/L (3.5-5.1); Sodium 142 mmol/L (136-145)
[2024-02-18 06:16] LABS: Bilirubin, Total 0.4 mg/dL (0.2-1.0); Total Protein 5.1 g/dL (5.7-8.2)
[2024-02-18 06:18] LABS: Alanine Aminotransferase 37 U/L (7-40)
[2024-02-18 06:36] LABS: Red Cell Distribution Width 20.7 % (11.8-14.3)
[2024-02-18 09:00] VITALS: PULSE 63; RESP 23; O2SAT 94
[2024-02-18] MEDS: POTASSIUM EFFERVESENT TAB 25 MEQ PO ONE (10:41)
[2024-02-18 19:00] VITALS: BP 135/83; PULSE 70; RESP 27; O2SAT 95
== END 2024-02-18 19:54 | disposition home or self-care (01) | DRG 816 ==
LOC: EDBD 20:59 → ER 20:59 → TELE 02-17 06:41
PROVIDERS: ADMIT Internal Medicine; ATTEND Internal Medicine
DX: T51.91XA Toxic effect of unspecified alcohol, accidental (unintentional), initial encounter (principal); R56.9 Unspecified convulsions; D64.9 Anemia, unspecified; D75.839 Thrombocytosis, unspecified; F14.90 Cocaine use, unspecified, uncomplicated; F32.A Depression, unspecified; F10.129 Alcohol abuse with intoxication, unspecified; Y90.9 Presence of alcohol in blood, level not specified; E87.6 Hypokalemia; F17.210 Nicotine dependence, cigarettes, uncomplicated; K21.9 Gastro-esophageal reflux disease without esophagitis; Z63.5 Disruption of family by separation and divorce; Z79.899 Other long term (current) drug therapy; Z79.891 Long term (current) use of opiate analgesic; Z90.49 Acquired absence of other specified parts of digestive tract; Z82.49 Family history of ischemic heart disease and other diseases of the circulatory system; Z83.3 Family history of diabetes mellitus; Z98.84 Bariatric surgery status; Z80.7 Family history of other malignant neoplasms of lymphoid, hematopoietic and related tissues
CPT/HCPCS: 36415; 80053; 80307; 80320; 80329; 81001; 83605; 83735; 84443; 84702; 85025; 87040; G0378

== ENCOUNTER 2024-05-08 11:11 | Emergency (ER) | payer MEDICAID ==
[~2024-05-08] VITALS: Ht 172.7 cm; Wt 107.0 kg
[2024-05-08] MEDS: SODIUM CHLORIDE 0.9% 500 ML IV ONE (12:11)
[2024-05-08 12:16] LABS: Basophils # (auto) 0.1 10 ^3/uL (0-0.2); Basophils % (auto) 1.1 % (0.0-2.0); Eosinophils # (auto) 0 10 ^3/uL (0-0.8); Eosinophils % (auto) 0.3 % (0.0-7.0); Lymphocytes # (auto) 1.1 10 ^3/uL (0.4-5.4); Monocytes # (auto) 0.4 10 ^3/uL (0-1.3); Neutrophils # (auto) 5.7 10 ^3/uL (1.6-8.6); Neutrophils % (auto) 78.3 % (37.0-80.0); Nucleated Red Blood Cells % 0.1 %; Red Blood Cells 4.38 10^6/uL (4.0-5.20); Red Cell Distribution Width 19.7 % (11.8-14.3)
[2024-05-08 12:18] LABS: Hematocrit 33.5 % (36.0-46.0); Hemoglobin 10.4 g/dL (12.2-16.2); Lymphocytes % (auto) 15.5 % (10.0-50.0); Mean Corpuscular Hemoglobin 23.8 pg (28.0-32.0); Mean Corpuscular Hgb Conc. 31.2 g/dL (32.0-36.0); Mean Corpuscular Volume 76.4 fL (80.0-100.0); Monocytes % (auto) 4.8 % (0.0-12.0); White Blood Cell 7.3 10^3/uL (4.4-10.8)
[2024-05-08 12:23] LABS: Chloride 109 mmol/L (98-107); Potassium 3.8 mmol/L (3.5-5.1); Sodium 144 mmol/L (136-145)
[2024-05-08 12:24] LABS: Anion Gap 11 (5-15); Calcium 8.4 mg/dL (8.7-10.4); Carbon Dioxide 24 mmol/L (20-30)
[2024-05-08 12:29] LABS: BUN/Creatinine Ratio 18.9 (10.0-20.0); Blood Urea Nitrogen 14 mg/dL (9-23); Glucose 104 mg/dL (74-106)
[2024-05-08 12:39] LABS: Blood Alcohol 329.3 mg/dL (<10)
[2024-05-08 18:14] VITALS: BP 113/78; PULSE 73; RESP 16; TEMP 98; O2SAT 99
== END 2024-05-08 22:50 | disposition home or self-care (01) ==
LOC: ER 11:11 → EDBD 11:11 → ER 22:45
DX: F10.129 Alcohol abuse with intoxication, unspecified (principal); R53.1 Weakness; F41.9 Anxiety disorder, unspecified; F32.9 Major depressive disorder, single episode, unspecified; F17.210 Nicotine dependence, cigarettes, uncomplicated; F15.90 Other stimulant use, unspecified, uncomplicated; Z98.890 Other specified postprocedural states; Z79.899 Other long term (current) drug therapy; Y90.0 Blood alcohol level of less than 20 mg/100 ml
CPT/HCPCS: 36415; 80048; 80320; 85025; 96360; 99283; J7040